=== PATIENT | female | born 1985 | race African-American/Black ===

== ENCOUNTER 2017-01-07 13:51 | Emergency (ER) | payer OTHER ==
[~2017-01-07] VITALS: Ht 160 cm; Wt 72.6 kg
[~2017-01-07 13:51] MED LIST: INSU100S22 SC; INSU100S45 SUBQ; LANTUS SUBQ
--- NOTE | 2017-01-07 13:58 | NUR ---
Patient ambulated to bed 07.
[2017-01-07 14:09] VITALS: BP 129/80
--- NOTE | 2017-01-07 14:10 | NUR ---
PATIENT PRESENTS TO ED WITH C/O BLURRED VISSION X 2 DAYS WITH ABDOMINAL PAIN AND BS ELEVATED 330; DR NAM NOTIFIED. DENIES N/V/D; SKIN IS PINK/WARM/DRY; AAOX4 WITH EVEN AND STEADY GAIT; LUNGS CLEAR BL; HR EVEN AND REGULAR; PT DENIES ANY FEVER, CP, SOB, OR COUGH AT THIS TIME; PATIENT STATES PAIN OF 8/10 AT THIS TIME; VSS; PATIENT POSITIONED FOR COMFORT; HOB ELEVATED; BEDRAILS UP X2; BED DOWN. ER MD MADE AWARE OF PT STATUS.
[2017-01-07] MEDS ORDERED: INSU10SU6 SUBQ ×2 (14:14)
[2017-01-07] MEDS ORDERED: NACL 0.9% 1,000 ML IV ONE (14:20)
[2017-01-07] MEDS ORDERED: KETOROLAC 30 MG/ML VIAL IVP ONE (14:20)
[2017-01-07 15:47] VITALS: BP 109/71
== END 2017-01-07 15:47 | disposition home or self-care (01) ==
LOC: MED 13:51
DX: M79.1 Myalgia (principal); E11.65 Type 2 diabetes mellitus with hyperglycemia; I10 Essential (primary) hypertension; F17.210 Nicotine dependence, cigarettes, uncomplicated; Z79.899 Other long term (current) drug therapy
CPT/HCPCS: 81002; 81025; 82948; 96361; 96374; 99284; J1885; J7030

== ENCOUNTER 2018-07-16 09:52 | Emergency (ER) | payer OTHER ==
[~2018-07-16] VITALS: Ht 160 cm; Wt 71.4 kg
[~2018-07-16 09:52] MED LIST changes: -INSU100S22 SC; -INSU100S45 SUBQ; +INSU10SU6 SUBQ; -LANTUS SUBQ
[2018-07-16 10:15] VITALS: BP 128/88
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
--- NOTE | 2018-07-16 11:05 | NUR ---
PT PROVIDING URINE AT THIS TIME.
--- NOTE | 2018-07-16 12:52 | NUR ---
ASKED DR. NARVAEZ AGAIN IF HE WANTED ANYTHING ORDERED FOR 285 BS. NO NEW ORDERS GIVEN.
--- NOTE | 2018-07-16 12:52 | NUR ---
DR. NARVAEZ AT BEDSIDE EVALUTING.
[2018-07-16] MEDS ORDERED: KETOROLAC 60 MG/2 ML VIAL IM ONE (12:55)
--- NOTE | 2018-07-16 12:59 | NUR ---
PT APPLYING MAKEUP AT THE BEDSIDE AT THIS TIME.
[2018-07-16 13:15] VITALS: BP 118/65
== END 2018-07-16 13:16 | disposition home or self-care (01) ==
LOC: MED 09:52
DX: S00.12XA Contusion of left eyelid and periocular area, initial encounter (principal); E11.9 Type 2 diabetes mellitus without complications; I10 Essential (primary) hypertension; F17.210 Nicotine dependence, cigarettes, uncomplicated; Z79.4 Long term (current) use of insulin; Z98.890 Other specified postprocedural states; W50.0XXA Accidental hit or strike by another person, initial encounter; Y93.89 Activity, other specified; Y92.89 Other specified places as the place of occurrence of the external cause; Y99.8 Other external cause status
CPT/HCPCS: 81002; 81025; 96372; 99283; J1885

== ENCOUNTER 2021-05-28 11:52 | Emergency (ER) | payer OTHER ==
[~2021-05-28] VITALS: Ht 152.4 cm; Wt 68.0 kg
[2021-05-28 12:03] VITALS: BP 139/89
--- NOTE | 2021-05-28 12:30 | NUR ---
Pt moved to bed 12.
[2021-05-28] MEDS ORDERED: KETOROLAC 30 MG/ML VIAL IVP ONE (12:40)
[2021-05-28] MEDS ORDERED: ONDANSETRON 4 MG/2 ML VIAL IVP ONE (12:40)
[2021-05-28] MEDS ORDERED: NACL 0.9% 1,000 ML IV ONE (12:40)
--- NOTE | 2021-05-28 13:14 | NUR ---
36 Y/O FEMALE BIBA FROM HOME C/O GENERAL WEAKNESS AND GENERAL BODY PAIN 02/26 DESCRIBES ACHING X1DAY. PER EMS PT STATES SHE IS NON-COMPLIANT WITH MEDICATION FRO DM. NOT CHECKING BS AT HOME. IV ESTABLISHED TO LEFT HAND 18G, 300ML OF NS GIVEN. PMH: CLAUDIA DOUGHERTY
[2021-05-28 13:21] LABS: HEMATOCRIT 36.2 % (36-48); HEMOGLOBIN 11.9 g/dL (12.0-16.0); MEAN CORPUSCULAR HEMOGLOBIN 29 pg (27-31); MEAN CORPUSCULAR HGB CONC 33 g/dL (33-37); MEAN CORPUSCULAR VOLUME 88.4 fL (80-94); PLATELET COUNT (AUTO) 182 K/uL (140-450); RED BLOOD CELL COUNT(AUTO) 4.09 MIL/uL (4.20-5.40); RED CELL DISTRIBUTION WIDTH 12.3 % (11.6-13.7); WHITE BLOOD COUNT (AUTO) 5.9 K/uL (4.8-10.8)
[2021-05-28 13:32] LABS: ALBUMIN 3.1 g/dL (3.4-5.0); ANION GAP 13.4 (8-16); CARBON DIOXIDE 26.7 mmol/L (21-32); CREATININE 0.6 mg/dL (0.6-1.3); POTASSIUM 4.1 mmol/L (3.5-5.1); TOTAL BILIRUBIN 0.2 mg/dL (0.0-1.0)
[2021-05-28 13:37] LABS: LYMPHOCYTES % (MANUAL) 10 % (20-46); MONOCYTES % (MANUAL) 10 % (5-12)
[2021-05-28 14:00] LABS: BILIRUBIN,URINE NEGATIVE (NEGATIVE); BLOOD, URINE NEGATIVE (NEGATIVE); COLOR,URINE YELLOW (YELLOW); LEUKOCYTE ESTERASE ,URINE NEGATIVE (NEGATIVE); NITRITE, URINE POSITIVE (NEGATIVE); UGLUCOSE 3+ (NEGATIVE)
--- NOTE | 2021-05-28 14:00 | NUR ---
PT RESTING IN BED ON LEFT SIDE, VSS, WILL CONTINUE TO MONITOR.
[2021-05-28 14:12] LABS: RBC,URINE 0-5 /HPF (0-5); WBC,URINE 0-5 /HPF (0-5)
[2021-05-28 14:13] LABS: APPEARANCE,URINE SLIGHTLY HAZY (CLEAR)
[2021-05-28] MEDS ORDERED: MAG355OR2 PO (14:38)
[2021-05-28] MEDS ORDERED: LEVO-315 PO (14:38)
[2021-05-28] MEDS ORDERED: cefTRIAXone 1,000 MG VIAL ONE (14:54)
[2021-05-28] MEDS ORDERED: INSU10SU6 SUBQ ×2 (15:06)
[2021-05-28] MEDS ORDERED: BLOO1EAC9 MC (15:06)
[2021-05-28 15:41] VITALS: BP 136/78
--- NOTE | 2021-05-28 15:42 | NUR ---
Patient discharged with v/s stable. Written and verbal after care instructions given UTI and explained. Patient alert, oriented and verbalized understanding of instructions. Ambulatory with steady gait. All questions addressed prior to discharge. ID band removed. Patient advised to follow up with PMD. Rx of GLUCOMETER, NOVOLOG MIX 70-30, LEVOFLOXACIN, AND MAALOX given. Patient educated on indication of medication including possible reaction and side effects. Opportunity to ask questions provided and answered.
== END 2021-05-28 15:42 | disposition home or self-care (01) ==
LOC: MED 11:52
DX: N39.0 Urinary tract infection, site not specified (principal); E11.65 Type 2 diabetes mellitus with hyperglycemia; M79.10 Myalgia, unspecified site; I10 Essential (primary) hypertension; Z79.4 Long term (current) use of insulin; Z79.899 Other long term (current) drug therapy
CPT/HCPCS: 36415; 71045; 80053; 81001; 81025; 83605; 83690; 85025; 87040; 96361; 96365; 96375; 99284; J0696; J1885; J2405; Q0092; J7030